=== PATIENT | female | born 1950 | race Caucasian/White ===

== ENCOUNTER → 2019-02-12 | Outpatient (CLI) | payer MEDICARE ==
--- NOTE | 2019-02-12 08:28 | US ---
EXAMINATION TYPE: US abdomen complete DATE OF EXAM: 02/12/2019 COMPARISON: NONE CLINICAL HISTORY: Abd Pain R10.9. EXAM MEASUREMENTS: Liver Length: 14.5 cm Gallbladder Wall: 0.2 cm CBD: 0.5 cm Spleen: 9.2 cm Right Kidney: 11.2 x 4.7 x 5.1 cm Left Kidney: 10.5 x 5.1 x 4.8 cm Pancreas: Obscured by bowel gas Liver: Heterogeneous Gallbladder: wnl Evidence for sonographic Hinojosa's sign: No CBD: wnl, distal portion obscured by bowel gas Spleen: wnl Right Kidney: No hydronephrosis or masses seen Left Kidney: No hydronephrosis or masses seen Upper IVC: wnl Abd Aorta: wnl The liver is heterogeneous. The intrahepatic portion of the IVC and proximal abdominal aorta are wit hin normal limits. There is no evidence of cholelithiasis. Common bile duct is unremarkable. The v isualized portions of the pancreas are homogenous. The spleen is unremarkable. Kidneys are symmetri c and free of hydronephrosis. No renal lesions are seen. IMPRESSION: 1. Mild hepatic heterogeneity may reflect a fatty liver versus diffuse hepatocellular disease. Correl ate clinically.
== END | disposition home or self-care (01) ==
LOC: RADUSWWP 07:27
PROVIDERS: ATTEND Obstetrics & Gynecology
DX: R10.9 Unspecified abdominal pain (principal); R11.2 Nausea with vomiting, unspecified
CPT/HCPCS: 76700

== ENCOUNTER → 2023-12-31 | Outpatient (CLI) | payer MEDICARE ==
[2023-12-31 16:03] LABS: ALT 17 U/L (8-44); AST 26 U/L (13-35); Albumin 4.2 g/dL (3.8-4.9); Albumin/Globulin Ratio 1.68 Ratio (1.60-3.17); Alkaline Phosphatase 93 U/L (41-126); BUN/Creat Ratio 31.67 Ratio (12.00-20.00); Calcium 9.3 mg/dL (8.7-10.3); Carbon Dioxide 25.9 mmol/L (21.6-31.8); Chloride 105 mmol/L (96-109); Chol/HDL Ratio 3.15 Ratio; Globulin 2.5 g/dL (1.6-3.3); Glucose 97 mg/dL (70-110); Potassium 4.4 mmol/L (3.5-5.5); Sodium 141 mmol/L (135-145); Total Bilirubin 0.6 mg/dL (0.3-1.2); Total Protein 6.7 g/dL (6.2-8.2); VLDL Calculation 16.52 mg/dL (5.00-40.00)
== END | disposition home or self-care (01) ==
LOC: LABWHC1 09:31
PROVIDERS: ATTEND Internal Medicine Interventional Cardiology
DX: E78.2 Mixed hyperlipidemia (principal)
CPT/HCPCS: 36415; 80053; 80061